=== PATIENT | male | born 1995 ===

== ENCOUNTER 2016-08-18 19:20 | Emergency (ER) | payer OTHER ==
[2016-08-18 19:28] VITALS: BP 108/55
--- NOTE | 2016-08-18 21:05 | UC ---
Throat Pain/Nasal Earnest HPI - HPI Summary HPI Summary: 21 yo male with sore throat f/c, runny nose and mild cough fatigue and myalgias no n/v/d no cp or sob - History of Current Complaint Chief Complaint: UCGeneralIllness Stated Complaint: SORE THROAT/FEVER/CONGESTION/FATIGUE Time Seen by Provider: 08/18/16 20:59 Hx Obtained From: Patient Onset/Duration: Gradual Onset, Lasting Days Severity: Moderate Pain Intensity: 4 Pain Scale Used: 0-10 Numeric Cough: Nonproductive Associated Signs & Symptoms: Positive: Nasal Discharge, Fever - Epiglottits Risk Factors Epiglottis Risk Factors: Negative - Allergies/Home Medications Allergies/Adverse Reactions: Allergies Allergy/AdvReac Type Severity Reaction Status Date / Time No Known Allergies Allergy Verified 08/18/16 19:28 PMH/Surg Hx/FS Hx/Imm Hx Previously Healthy: Yes - Surgical History Surgical History: Yes Surgery Procedure, Year, and Place: CYST REMOVED FROM EYE BROW AN INFANT - Family History Known Family History: Positive: Hypertension - Social History Alcohol Use: Occasionally Substance Use Type: None Smoking Status (MU): Never Smoked Tobacco Review of Systems Constitutional: Fever, Chills, Fatigue Skin: Negative Eyes: Negative ENT: Sore Throat, Nasal Discharge Respiratory: Cough Cardiovascular: Negative Gastrointestinal: Negative Genitourinary: Negative Motor: Negative Neurovascular: Negative Musculoskeletal: Myalgia Neurological: Headache Psychological: Negative All Other Systems Reviewed And Are Negative: Yes Physical Exam Triage Information Reviewed: Yes Appearance: Well-Appearing, No Pain Distress, Well-Nourished Vital Signs: Initial Vital Signs Temp 99.0 F 08/18/16 19:23 Pulse 102 08/18/16 19:23 Resp 18 08/18/16 19:23 BP 108/55 08/18/16 19:23 Vital Signs Reviewed: Yes Eyes: Positive: Conjunctiva Clear ENT: Positive: Normal ENT inspection, Pharyngeal erythema, Nasal drainage, TMs normal, Tonsillar swelling. Negative: Nasal congestion Dental Exam: Normal Neck exam: Normal Neck: Positive: Enlarged Nodes @ - ant cervical Respiratory: Positive: Lungs clear, Normal breath sounds, No respiratory distress, No accessory muscle use Cardiovascular: Positive: RRR, No Murmur Abdomen Description: Positive: Nontender, No Organomegaly Bowel Sounds: Positive: Present Musculoskeletal: Positive: ROM Intact, No Edema Neurological: Positive: Alert Psychological Exam: Normal Skin Exam: Normal Throat Pain/Nasal Course/Dx - Differential Dx/Diagnosis Provider Diagnoses: acute tonsillitis Discharge - Discharge Plan Condition: Stable Disposition: HOME Prescriptions: Cephalexin CAP* [Keflex CAP*] 500 mg PO BID #20 cap Patient Education Materials: Tonsillitis (ED) Forms: *School Release Referrals: Non Staff,Doctor [Primary Care Provider] - Additional Instructions: recheck in 4 day if not better recheck sooner for worsening symptoms
[2016-08-18] MEDS ORDERED: Cephalexin CAP* 500 MG PO ONE (21:45)
== END 2016-08-18 21:56 | disposition home or self-care (01) ==
LOC: UCCORT 19:20
DX: J03.90 Acute tonsillitis, unspecified (principal)
CPT/HCPCS: 87502; 87651; 99202; A9270-GY; G0463